=== PATIENT | female | born 1990 | race Caucasian/White ===

== ENCOUNTER 2020-08-21 12:31 | Outpatient (REF) | payer OTHER, SELFPAY ==
[2020-08-21 13:56] LABS: MANUAL DIFF FLAG NO
[2020-08-21 14:04] LABS: Basophils Percent Auto 0.5 % (0-2); Eosinophils Absolute Auto 0.1 X10*3/uL (0.0-0.4); Eosinophils Percent Auto 2.1 % (0-4); Hematocrit 38.2 % (37-47); Hemoglobin 12.1 g/dl (12.0-16.0); Imm Gran Abs Auto 0.01 X10*3/uL (0.00-0.03); Imm Gran Pct Auto 0.2 % (0.0-0.4); Lymphocytes Absolute Auto 2.3 X10*3/uL (1.2-4.9); Lymphocytes Percent Auto 40.8 % (20-40); Mean Corpuscular HGB Conc 31.7 g/dl (31.0-35.0); Mean Corpuscular Hemoglobin 27.1 pg (27.0-33.0); Mean Corpuscular Volume 85.5 fL (80-98); Monocytes Absolute Auto 0.4 X10*3/uL (0.1-1.2); Monocytes Percent Auto 6.5 % (2-11); Neutrophils Absolute Auto 2.8 X10*3/uL (2.0-8.3); Neutrophils Percent Auto 49.9 % (45-73); Platelet Count 314 X10*3/uL (160-400); Red Blood Count 4.47 X10*6/uL (4.20-5.50); Red Cell Distribution Width 12.8 % (11.0-16.0); White Blood Count 5.7 X10*3/uL (4.8-10.8)
[2020-08-21 14:27] LABS: Anion Gap 12 (12-20); Blood Urea Nitrogen 11 mg/dL (9-16); Carbon Dioxide 26 mmol/L (22-29); Chloride 104 mmol/L (96-108); Cholesterol 170 mg/dL; Estimated Glomerular Filt Rate > 60; Glucose Fasting 84 mg/dL (60-99); HDL Cholesterol 49 mg/dL; Iron 35 mcg/dL (30-160); LDL Cholesterol Calculated 107 mg/dl; Percent Iron Saturation 8 % (15-50); Potassium 4.6 mmol/l (3.3-5.1); Sodium 137 mmol/L (135-145); Total Iron Binding Capacity 419 mcg/dL (228-428); Triglycerides 71 mg/dL; Unsaturated Iron Binding 384 ug/dL
[2020-08-21 14:47] LABS: TSH reflex Free T4 1.43 mIU/mL (0.32-4.0)
[2020-08-21 15:20] LABS: Ferritin 16 ng/mL (10-122)
== END 2020-08-21 12:32 | disposition home or self-care (01) ==
LOC: HO.HMGCLDS 12:31
PROVIDERS: PCP Internal Medicine; Visit Provider Internal Medicine
DX: K20.90 Esophagitis, unspecified without bleeding (principal); K58.9 Irritable bowel syndrome, unspecified; I10 Essential (primary) hypertension; Z00.01 Encounter for general adult medical examination with abnormal findings
CPT/HCPCS: 36415; 80048; 80061; 82728; 83540; 84443; 85025

== ENCOUNTER 2022-09-06 09:54 | Outpatient (AMB) | payer OTHER, SELFPAY ==
--- NOTE | 2022-09-06 10:02 | A.OFFPC_ITS ---
Vital Signs 09/06/22 10:07 Height 5 ft 4 in Weight 211 lb BMI 36.2 BP 112/80 Blood Pressure Location Rt brachial Position Sitting Pulse 88 Pulse Source Pulse Oximeter Pulse Oximetry (%) 98 Oxygen Delivery Method Room Air Intake Visit Reasons: PE Intake Note: Pt is here today for her PE Allergies ibuprofen Adverse Reaction (Mild, Verified 02/10/25 00:50) GI upset naproxen Adverse Reaction (Unknown, Verified 02/10/25 00:50) GI upset Medication List - Last Reconciled 09/06/22 by Imani Foley MD buspirone 10 mg PO TID Tobacco use date assessed: 09/06/22 HPI PE HPI Details 31-year-old lady with obesity and anxiet y disorder, here today for physical exam. She is currently seeing [facility] for continued pain in her left hip, has been diagnosed to have left hip femoral acetabular impingement with suspected labral tear. She has failed multiple conservative treatment efforts including activity modification, multiple rounds of formal physical therapy, intra-articular cortisone injection and anti-inflammatory course with no sustained relief. It was recommended that the next step is going to be a referral to Dr. Desai for consideration of left hip arthroscopy with acetabuloplasty, femoroplasty and labral repair. [facility] Medical History (Updated 02/01/25 @ 11:58 by Imani Foley MD) Intertrigo Upper back pain, chronic Uterine fibroid Dorsalgia of cervicothoracic region Obesity with body mass index (BMI) of 35.0 to 39.9 without comorbidity Anxiety and depression Chronic left hip pain Dysmenorrhea IBS (irritable bowel syndrome) Hiatal hernia Esophagitis determined by endoscopy Toes fractured Lactose intolerance Surgical History History of tonsillectomy Family History Father HTN (hypertension) Mother HTN (hypertension) Diabetes mellitus Cancer of thyroid Mental health disorder Brother No problems noted. Brother No problems noted. Sister No problems noted. Social History Housing: Apartment Alcohol intake: current Patient Tobacco Use Status: Never used Tobacco e-Cigarette/Vaping Use: Never Used Substance Use Type: Marijuana service: Yes Current occupational status: employed Current occupation: hvac technician residential at [employer] Current occupational exposures/hazards: No Cognitive needs: No Hearing needs: No Vision needs: No Questionnaire PHQ-9 Over the last 2 weeks, how often have you been bothered by any of the following problems? 1. Little interest or pleasure in doing things: more than half the days 2. Feeling down, depressed, or hopeless: several days 3. Trouble falling or staying asleep, or sleeping too much: nearly every day 4. Feeling tired or having little energy: nearly every day 5. Poor appetite or overeating: nearly every day 6. Feeling bad about yourself - or that you are a failure or have let yourself or your family down: not at all 7. Trouble concentrating on things, such as reading the newspaper or watching television: several days 8. Moving or speaking so slowly that other people could have noticed. Or the opposite - being so fidgety or restless that you have been moving around a lot more than usual: not at all 9. Thoughts that you would be better off or of hurting yourself in some way: not at all Total score: 13 Depression Screening Interpretation: Positive Depression Screening Follow-up: Existing condition and In treatment Source: Developed by Drs. Wesley Her, Clarisa Rodriguez, Felipe Bustillo and colleagues, with an educational cathy from [employer]. Thrive Questionnaire Date Thrive assessed: 09/06/22 I am a: Patient What is your living situation today?: I have a steady place to live Within the past 12 months, did the food you bought not last and you didn't have the money to get more?: Never true Within the past 12 months, did you worry whether your food would run out before you got money to buy more?: Never true Do you have trouble paying for medicines?: No Do you have trouble getting transportation to medical appointments?: No Do you have trouble paying your heating and electricity bill?: No Do you have trouble taking care of your child, family member or friend?: No Do you have trouble with day-to-day activities such as bathing, preparing meals, shopping, managing finances, etc.?: No Are you currently unemployed and looking for a job?: No Are you interested in more education?: Yes MICHAELA-7 AMB Questionnaire MICHAELA-7 Date MICHAELA - 7 assessed: 09/06/22 Feeling nervous, anxious, or on edge: 2 = More than half the days Not being able to stop or control worryin = More than half the days Worrying too much about different things: 3 = Nearly every day Trouble relaxin = Nearly every day Being so restless that it is hard to sit still: 2 = More than half the days Becoming easily annoyed or irritable: 3 = Nearly every day Feeling afraid as if something awful might happen: 0 = Not at all Total MICHAELA-7 score (0-4 normal; 5-9 mild; 10-14 moderate; 15-21 severe): 15 Source: Developed by Drs. Wesley Her, Clarisa Rodriguez, Felipe Bustillo and colleagues, with an educational cathy from [employer]. Physical exam (Primary Care) Vital Signs: Last Vital Signs Pulse 88 09/06/22 10:07 BP 112/80 09/06/22 10:07 Pulse Ox 98 09/06/22 10:07 Oxygen Delivery Method Room Air 09/06/22 10:07 BMI result Body Mass Index 36.2 Tobacco/Smoking Status: Tobacco use Status Tobacco use date assessed 09/06/22 09/06/22 10:09 Patient Tobacco Use Status Never used Tobacco 09/06/22 10:03 e-Cigarette/Vaping Use Never Used 09/06/22 10:03 PHQ-9: PHQ-9 Score PHQ-9: Total score 13 09/06/22 10:48 Depression Screening Interpretation: Positive Depression Screening Follow-up: Existing condition and In treatment Thrive Assessment: Date of Thrive Assessment Date Thrive assessed 09/06/22 09/06/22 10:15 Office Procedures Flu Questionnaire Does the patient have a severe egg allergy?: No Does the patient have severe life threatening allergies?: No Does the patient have a fever or illness today?: No Has the patient ever had Guillain-Morehouse Syndrome?: No Has the patient ever had any past reaction to a flu shot?: No Immunizations flu vacc [id number] 6mos up(PF) 60 mcg(15 mcgx4)/0.5 mL IM syringe Performing Provider: Imani Foley MD Performing Location: [facility] [place] [facility] Administered by: Barbara Albarran CMA on 09/06/22 10:09 Dose Route Admin Location Dispensed Lot Number Expiration Date NDC Salvage Cutter 0.5 mL IM Right Deltoid 0.5 mL [id number] 09/06/22 85705-153-38 [employer] Total Dispensed Waste 0.5 mL 0 % VIS Given Date VIS Provided VIS Publication Date 09/06/22 Single Vaccine 21 Eligibility Eligibility Date Funding Source Not [facility] Eligible 09/06/22 Private Coding Level of Care Code Admin Sign Off/No Billing Diagnoses Chronic left hip pain M25.552; G89.29 Anxiety and depression F41.9; F32.A Annual visit for general adult medical examination with abnormal findings Z00.01 Obesity with body mass index (BMI) of 35.0 to 39.9 without comorbidity E66.9 Dorsalgia of cervicothoracic region M54.2; M54.6
[2022-09-06 10:07] VITALS: BP 112/80; PULSE 88; O2SAT 98; BMI 36.2
== END 2022-09-06 10:49 | disposition home or self-care (01) ==
LOC: HO.HMGC 09:54
PROVIDERS: PCP Internal Medicine; Visit Provider Internal Medicine
DX: M25.552 Pain in left hip (principal); G89.29 Other chronic pain; F41.9 Anxiety disorder, unspecified; F32.A Depression, unspecified; Z00.01 Encounter for general adult medical examination with abnormal findings; E66.9 Obesity, unspecified; M54.2 Cervicalgia; M54.6 Pain in thoracic spine
CPT/HCPCS: 99499

== ENCOUNTER 2022-09-12 08:10 | Outpatient (REF) | payer OTHER, SELFPAY ==
[2022-09-12 09:18] LABS: Cholesterol 160 mg/dL; Glucose Fasting 96 mg/dL (60-99); HDL Cholesterol 42 mg/dL; LDL Cholesterol Calculated 108 mg/dl; TSH reflex Free T4 1.16 uIU/mL (0.32-4.0); Triglycerides 52 mg/dL; Vitamin D 25-OH Total 22.2 ng/mL (>30)
== END 2022-09-12 08:11 | disposition home or self-care (01) ==
LOC: HO.LAB 08:10
PROVIDERS: PCP Internal Medicine; Visit Provider Internal Medicine
DX: Z00.01 Encounter for general adult medical examination with abnormal findings (principal); F32.A Depression, unspecified; F41.9 Anxiety disorder, unspecified; G89.29 Other chronic pain; M25.552 Pain in left hip; E66.9 Obesity, unspecified
CPT/HCPCS: 36415; 80061; 82306; 82947; 84443

== ENCOUNTER 2022-11-25 13:55 | Outpatient (REF) | payer OTHER, SELFPAY ==
--- NOTE | ~2022-11-25 | XR_ITS ---
EXAMINATION: XR LUMBOSACRAL SPINE CLINICAL INFORMATION: 32-year-old with low back pain COMPARISON: CT scan from 08/19/2019 TECHNIQUE: Three views of the lumbosacral spine. FINDINGS: The vertebral bodies and posterior elements are normal. The disc spaces are preserved and the vertebral alignment is normal. The paraspinal soft tissues are normal. XR/XR lumbar spine 2-3V IMPRESSION: Unremarkable examination.
== END 2022-11-25 13:56 | disposition home or self-care (01) ==
LOC: HO.HMGCX 13:55
PROVIDERS: PCP Internal Medicine; Visit Provider Physician Assistant
DX: M54.50 Low back pain, unspecified (principal)
CPT/HCPCS: 72100

== ENCOUNTER 2023-09-12 11:01 | Outpatient (AMB) | payer OTHER, SELFPAY ==
[2023-09-12 11:45] VITALS: BP 132/86; PULSE 86; O2SAT 99; BMI 40.4
--- NOTE | 2023-09-12 11:45 | MHC.PC.OV ---
Vital Signs 09/12/23 11:45 Height 5 ft 4 in Weight 235 lb 6 oz BMI 40.4 BP 132/86 Blood Pressure Location Rt brachial Position Sitting Pulse 86 Pulse Source Pulse Oximeter Pulse Oximetry (%) 99 Oxygen Delivery Method Room Air Intake Visit Reasons: Annual PE Intake Note: Pt is here for her Annual PE Pt's last pap was at [facility] 07/21 Is last menstrual period known: Yes Last menstrual period: 08/26/23 Allergies ibuprofen Adverse Reaction (Mild, Verified 09/12/23 12:11) GI upset naproxen Adverse Reaction (Unknown, Verified 09/12/23 12:11) GI upset Medication List - Last Reconciled 09/12/23 by Imani Foley MD buspirone 10 mg PO TID Tobacco use date assessed: 09/12/23 Dental Screening Dental Screen Date: 09/12/23 Did you have a dental visit in the last 12 months?: Yes Did you have a dental problem in the last 6 months where you did not have access to dental care?: No Was dental information given to patient?: Patient has dentist HPI Annual PE HPI Details 32-year-old lady here today for physical exam. She goes to [facility] for routine Pap, LAST DONE APRIL 2023 which showed ASCUS and positive BV. She is also being seen for uterine fibroids, and is to be scheduled for a myomectomy. Has anxiety depression currently on buspirone 10 mg 1 tablet 3 times a day which she states has not seem to be helping anymore. She has been diagnosed to have anxiety since she was 15 years old, has only been seen for therapy but no Psychiatry evaluation. Patient thinks that she might also have ADD as she has had problems keeping her concentration and focus at work. Would like a referral for formal evaluation to evaluate for ADD. Complains of itching and occasional stinging pain inside left ear canal. This has been present now for the last several weeks after she was treated for an acute sinusitis . [facility] Medical History Uterine fibroid Dorsalgia of cervicothoracic region Obesity with body mass index (BMI) of 35.0 to 39.9 without comorbidity Anxiety and depression Chronic left hip pain Dysmenorrhea IBS (irritable bowel syndrome) Hiatal hernia Esophagitis determined by endoscopy Toes fractured Lactose intolerance Surgical History History of tonsillectomy Family History Father HTN (hypertension) Mother HTN (hypertension) Diabetes mellitus Cancer of thyroid Brother No problems noted. Brother No problems noted. Sister No problems noted. Social History Housing: Apartment Alcohol intake: current Patient Tobacco Use Status: Never used Tobacco e-Cigarette/Vaping Use: Never Used Substance Use Type: Marijuana service: Yes Current occupational status: employed Current occupation: residential team leader at [employer] Current occupational exposures/hazards: No Cognitive needs: No Hearing needs: No Vision needs: No Female Reproductive History Menstrual Duration of menses: 6-7 days Date of last menstrual period: 08/26/23 Date of last pap smear: 05/14/23 History of abnormal pap smear: Yes Other: [facility], had a Pap smear done June 2023, currently being followed for uterine fibroid, to be scheduled for a myomectomy Questionnaire PHQ-9 Over the last 2 weeks, how often have you been bothered by any of the following problems? 1. Little interest or pleasure in doing things: more than half the days 2. Feeling down, depressed, or hopeless: more than half the days 3. Trouble falling or staying asleep, or sleeping too much: nearly every day 4. Feeling tired or having little energy: more than half the days 5. Poor appetite or overeating: several days 6. Feeling bad about yourself - or that you are a failure or have let yourself or your family down: not at all 7. Trouble concentrating on things, such as reading the newspaper or watching television: nearly every day 8. Moving or speaking so slowly that other people could have noticed. Or the opposite - being so fidgety or restless that you have been moving around a lot more than usual: not at all 9. Thoughts that you would be better off or of hurting yourself in some way: not at all Total score: 13 Depression Screening Interpretation: Positive Depression Screening Follow-up: Existing condition, In treatment, New Medication prescribed, Community Mental Health Worker F/U (Referred [facility] for assistance in getting in to be seen by therapist and psychiatry) and Follow-up Visit Requested Depression Screening Done: Yes 10196 - PHQ-9 Billing: Yes Source: Developed by Drs. Wesley Her, Clarisa Rodriguez, Felipe Bustillo and colleagues, with an educational cathy from [facility] [employer]. Thrive Questionnaire Date Thrive assessed: 09/12/23 Within the past 12 months, did the food you bought not last and you didn't have the money to get more?: Never true Within the past 12 months, did you worry whether your food would run out before you got money to buy more?: Never true Do you have trouble paying for medicines?: No Do you have trouble getting transportation to medical appointments?: No Do you have trouble paying your heating and electricity bill?: No Do you have trouble taking care of your child, family member or friend?: No Do you have trouble with day-to-day activities such as bathing, preparing meals, shopping, managing finances, etc.?: No Are you currently unemployed and looking for a job?: No Are you interested in more education?: No AUDIT C Alcohol Use Questionnaire (AUDIT-C) 1. How often do you have a drink containing alcohol?: 2-3 times a week 2. How many drinks containing alcohol do you have on a typical day when you are drinking?: 3 or 4 3. How often do you have six or more drinks on one occasion?: Never Total Score: 4 MICHAELA-7 AMB Questionnaire MICHAELA-7 Date MICHAELA - 7 assessed: 09/06/22 Feeling nervous, anxious, or on edge: 2 = More than half the days Not being able to stop or control worryin = Nearly every day Worrying too much about different things: 3 = Nearly every day Trouble relaxin = More than half the days Being so restless that it is hard to sit still: 2 = More than half the days Becoming easily annoyed or irritable: 2 = More than half the days Feeling afraid as if something awful might happen: 1 = Several days Total MICHAELA-7 score (0-4 normal; 5-9 mild; 10-14 moderate; 15-21 severe): 15 Source: Developed by Drs. Wesley Her, Clarisa Rodriguez, Felipe Bustillo and colleagues, with an educational cathy from [facility]. MICHAELA-7 Assessment Billing MICHAELA-7 Assessment Tool: MCIHAELA-7 Assessment 47316 Review of Systems Const Denies body aches, Denies fatigue, Denies fever(s), Denies headache(s) and Denies weakness Eyes Denies change in vision, Denies eye discharge and Denies itchy eyes ENT Reports as per HPI, Denies dizziness, Denies ear discharge, Denies headache(s), Denies nasal congestion, Denies nasal discharge and Denies sore throat Card Denies chest pain, Denies lightheadedness, Denies palpitations and Denies dyspnea Resp Denies chest congestion, Denies cough, Denies dyspnea and Denies wheezing GI Denies abdominal pain, Denies change in bowel habits and Denies heartburn Denies hematuria, Denies urinary frequency, Denies dysuria and Denies urinary urgency Musc Reports no additional complaints Skin/Breast Denies breast pain, Denies breast mass, Denies lesions and Denies rash Neuro Denies dizziness, Denies headache(s) and Denies weakness Psych Reports as per HPI Endo Denies fatigue, Denies polydipsia, Denies polyuria and Denies palpitations Paresh/Lymph Denies easy bruising Aller/Immun Denies itchy eyes, Denies seasonal rhinorrhea and Denies wheezing Physical exam (Primary Care) Vital Signs: Last Vital Signs Pulse 86 09/12/23 11:45 BP 132/86 09/12/23 11:45 Pulse Ox 99 09/12/23 11:45 Oxygen Delivery Method Room Air 09/12/23 11:45 BMI result Body Mass Index 40.4 Tobacco/Smoking Status: Tobacco use Status Tobacco use date assessed 09/12/23 09/12/23 11:52 Patient Tobacco Use Status Never used Tobacco 09/12/23 11:52 e-Cigarette/Vaping Use Never Used 09/12/23 11:52 PHQ-9: PHQ-9 Score PHQ-9: Total score 13 09/12/23 12:35 Depression Screening Interpretation: Positive Depression Screening Follow-up: Existing condition, In treatment, New Medication prescribed, Community Mental Health Worker F/U (Referred [facility] for assistance in getting in to be seen by therapist and psychiatry) and Follow-up Visit Requested Thrive Assessment: Date of Thrive Assessment Date Thrive assessed 09/12/23 09/12/23 12:35 Const General: no acute distress and alert Orientation/consciousness: patient oriented x3 [facility] Head: Yes normocephalic and Yes atraumatic Ears: external ears normal General nose exam: Normal external nose present and No nasal discharge present Face and sinus: Yes face symmetric Mouth: Normal oral and palatal mucosa present, oropharynx normal and moist mucous membranes Eyes General: appearance normal, both eyes and all related structures Neck Neck: Yes full ROM, Yes no lymphadenopathy and Yes supple Thyroid: Thyroid normal Resp Effort & Inspection: normal respiratory effort and able to speak in complete sentences Auscultation: clear to auscultation bilaterally Cardio Rate: regular rate Rhythm: regular rhythm Heart sounds: S1 normal heart sound present and S2 normal heart sound present GI Palpation (GI): Soft to palpation, nontender, no guarding and no masses Auscultation: normal bowel sounds General: Yes no CVA tenderness Back/Spine/Pelvis Back: no CVA tenderness and No back tenderness Skin General skin exam: no rashes or lesions noted Neuro General: patient oriented x3, gait normal, moves all extremities, Normal light touch and pain sensation, no focal motor deficits and CN's II-XI intact bilaterally Cognition (Neuro): normal cognition Gait exam (Neuro): Normal gait present Motor exam (neuro): 5/5 motor strength present throughout Extrem General: Yes normal to inspection, Yes full ROM, Yes no joint enlargement, Yes no pedal edema and Yes normal gait Psych Appearance: grossly normal and well kempt Mental Status: mental status grossly normal Speech and movement: Normal speech and movement present Affect: normal affect Attitude: cooperative Thought process: Normal thought process present Thought content: Normal thought content present Insight: Good insight present (Psych) Judgement: Good judgement present (Psych) Assessment and Plan Assessment & Plan (1) Annual visit for general adult medical examination with abnormal findings: Code(s): Z00.01 - Encounter for general adult medical examination with abnormal findings Plan: Fasting lab ordered. Up-to-date with her cervical cancer screening and Pap smear, reminded to get dental prophylaxis every 6 months and get eye exam at least every 2 years. She is up-to-date with her flu vaccine, declines getting COVID booster sending more, up-to-date with her Tdap (2) Anxiety and depression: Code(s): F41.9 - Anxiety disorder, unspecified; F32.A - Depression, unspecified Plan: Continue with buspirone 10 mg 1 tablet 3 times a day, added escitalopram 5 mg 1 daily, referred to Anastasiya almanza [facility] for assistance and referring her for therapy and for evaluation for possible ADD (3) Obesity with body mass index (BMI) of 35.0 to 39.9 without comorbidity: Code(s): E66.9 - Obesity, unspecified Plan: Discussed need to increase activity and wt reduction. Recommended focusing on improving your health instead of dieting. : Eat Mediterranean diet, limit foods high in fat, sugar, and calories, eat slowly, pay attention to portion sizes, plan your meals ahead of time, start regular physical activity 150 minutes of moderate intensity exercise or 90 minutes/week of vigorous exercise and increase water intake. (4) Otalgia of left ear: Code(s): H92.02 - Otalgia, left ear Plan: Prescription sent for nodbsiql-zqpaipqs-DB-thonzonium new drops, to use as directed (5) Uterine fibroid: Code(s): D25.9 - Leiomyoma of uterus, unspecified Plan: Currently followed by OBGYN at [facility], awaiting schedule for myomectomy Orders: Orders Lipid Panel Today D25.9 - Leiomyoma of uterus, unspecified, E66.9 - Obesity, unspecified, F32.A - Depression, unspecified, F41.9 - Anxiety disorder, unspecified, H92.02 - Otalgia, left ear, J30.9 - Allergic rhinitis, unspecified, K20.90 - Esophagitis, unspecified without bleeding, Z00.01 - Encounter for general adult medical examination with abnormal findings Aspartate Amino Transferase Today D25.9 - Leiomyoma of uterus, unspecified, E66.9 - Obesity, unspecified, F32.A - Depression, unspecified, F41.9 - Anxiety disorder, unspecified, H92.02 - Otalgia, left ear, J30.9 - Allergic rhinitis, unspecified, K20.90 - Esophagitis, unspecified without bleeding, Z00.01 - Encounter for general adult medical examination with abnormal findings Alanine Aminotransferase Today D25.9 - Leiomyoma of uterus, unspecified, E66.9 - Obesity, unspecified, F32.A - Depression, unspecified, F41.9 - Anxiety disorder, unspecified, H92.02 - Otalgia, left ear, J30.9 - Allergic rhinitis, unspecified, K20.90 - Esophagitis, unspecified without bleeding, Z00.01 - Encounter for general adult medical examination with abnormal findings Basic Metabolic Panel Fasting Today D25.9 - Leiomyoma of uterus, unspecified, E66.9 - Obesity, unspecified, F32.A - Depression, unspecified, F41.9 - Anxiety disorder, unspecified, H92.02 - Otalgia, left ear, J30.9 - Allergic rhinitis, unspecified, K20.90 - Esophagitis, unspecified without bleeding, Z00.01 - Encounter for general adult medical examination with abnormal findings Complete Blood Count Auto Diff Today D25.9 - Leiomyoma of uterus, unspecified, E66.9 - Obesity, unspecified, F32.A - Depression, unspecified, F41.9 - Anxiety disorder, unspecified, H92.02 - Otalgia, left ear, J30.9 - Allergic rhinitis, unspecified, K20.90 - Esophagitis, unspecified without bleeding, Z00.01 - Encounter for general adult medical examination with abnormal findings TSH reflex Free T4 Today D25.9 - Leiomyoma of uterus, unspecified, E66.9 - Obesity, unspecified, F32.A - Depression, unspecified, F41.9 - Anxiety disorder, unspecified, H92.02 - Otalgia, left ear, J30.9 - Allergic rhinitis, unspecified, K20.90 - Esophagitis, unspecified without bleeding, Z00.01 - Encounter for general adult medical examination with abnormal findings Vitamin D 25-OH Total Today D25.9 - Leiomyoma of uterus, unspecified, E66.9 - Obesity, unspecified, F32.A - Depression, unspecified, F41.9 - Anxiety disorder, unspecified, H92.02 - Otalgia, left ear, J30.9 - Allergic rhinitis, unspecified, K20.90 - Esophagitis, unspecified without bleeding, Z00.01 - Encounter for general adult medical examination with abnormal findings Medications: New escitalopram oxalate 5 mg PO DAILY 30 tabs 1RF F32.A - Depression, unspecified, F41.9 - Anxiety disorder, unspecified evnfkdts-sfbiuz-VM-thonzonium 3.3-3-10-0.5 mg/mL apply to (cotton) wick; replace wick every 24 hours 1 appl otic (ear) left Q4H 5 days 10 mL 0RF Coding Level of Care Code Est Pt Prev Care [id number]([id number]) Diagnoses Annual visit for general adult medical examination with abnormal findings Z00.01 Anxiety and depression F41.9; F32.A Obesity with body mass index (BMI) of 35.0 to 39.9 without comorbidity E66.9 Otalgia of left ear H92.02 Uterine fibroid D25.9 Additional Codes MICHAELA-7 Assessment Billing - MICHAELA-7 Assessment Tool: MICHAELA-7 Assessment [id number] ([id number])
== END 2023-09-12 14:14 | disposition home or self-care (01) ==
PROVIDERS: Visit Provider Internal Medicine
DX: Z00.01 Encounter for general adult medical examination with abnormal findings (principal); F41.9 Anxiety disorder, unspecified; H92.02 Otalgia, left ear; F32.A Depression, unspecified; E66.9 Obesity, unspecified; D25.9 Leiomyoma of uterus, unspecified
CPT/HCPCS: 96127; 99213; 99395

== ENCOUNTER 2023-10-16 09:35 | Outpatient (REF) | payer OTHER, SELFPAY ==
[2023-10-16 11:47] LABS: MANUAL DIFF FLAG NO
[2023-10-16 12:10] LABS: Basophils Percent Auto 0.3 % (0-2); Eosinophils Absolute Auto 0.2 X10*3/uL (0.0-0.4); Eosinophils Percent Auto 2.3 % (0-4); Hematocrit 37.8 % (37.0-47.0); Hemoglobin 12.3 g/dl (12.0-16.0); Imm Gran Abs Auto 0.05 X10*3/uL (0.00-0.03); Imm Gran Pct Auto 0.6 % (0.0-0.4); Lymphocytes Percent Auto 25.9 % (20-40); Mean Corpuscular HGB Conc 32.5 g/dl (31.0-35.0); Mean Corpuscular Hemoglobin 26.7 pg (27.0-33.0); Mean Corpuscular Volume 82.2 fL (80.0-98.0); Mean Platelet Volume 10.1 fL (9.4-12.3); Monocytes Absolute Auto 0.4 X10*3/uL (0.1-1.2); Monocytes Percent Auto 5.7 % (2-11); Neutrophils Percent Auto 65.2 % (45-73); Platelet Count 348 X10*3/uL (160-400); Red Cell Distribution Width 12.8 % (11.0-16.0); White Blood Count 7.7 X10*3/uL (4.8-10.8)
[2023-10-16 13:26] LABS: Alanine Aminotransferase 32 U/L (0-31); Anion Gap 13 (12-20); Aspartate Amino Transferase 23 U/L (5-31); Blood Urea Nitrogen 9 mg/dL (9-16); Calcium 9.5 mg/dL (8.4-10.2); Carbon Dioxide 23 mmol/L (22-29); Chloride 109 mmol/L (96-108); Cholesterol 162 mg/dL (<200); Estimated Glomerular Filt Rate > 60; Glucose Fasting 81 mg/dL (60-99); HDL Cholesterol 45 mg/dL (>40); LDL Cholesterol Calculated 103 mg/dL (<100); Sodium 141 mmol/L (135-145); Triglycerides 71 mg/dL (<150)
[2023-10-16 13:44] LABS: TSH reflex Free T4 0.74 uIU/mL (0.32-4.0); Vitamin D 25-OH Total 20.4 ng/mL (>30)
== END 2023-10-16 09:36 | disposition home or self-care (01) ==
LOC: HO.HMGCLDS 09:35
PROVIDERS: PCP Internal Medicine; Visit Provider Internal Medicine
DX: Z00.01 Encounter for general adult medical examination with abnormal findings (principal); F41.9 Anxiety disorder, unspecified; F32.A Depression, unspecified; E66.9 Obesity, unspecified; K20.90 Esophagitis, unspecified without bleeding; D25.9 Leiomyoma of uterus, unspecified; J30.9 Allergic rhinitis, unspecified; H92.02 Otalgia, left ear
CPT/HCPCS: 36415; 80048; 80061; 82306; 84443; 84450; 84460; 85025

== ENCOUNTER 2025-01-31 09:06 | Outpatient (REF) | payer OTHER, SELFPAY ==
[2025-01-31 10:41] LABS: Alanine Aminotransferase 17 U/L (0-31); Anion Gap 12 (12-20); Aspartate Amino Transferase 19 U/L (5-31); Blood Urea Nitrogen 11 mg/dL (9-16); Calcium 9.1 mg/dL (8.4-10.2); Carbon Dioxide 22 mmol/L (22-29); Chloride 109 mmol/L (96-108); Cholesterol 163 mg/dL (<200); Estimated Glomerular Filt Rate > 60; Glucose Fasting 99 mg/dL (60-99); HDL Cholesterol 43 mg/dL (>40); LDL Cholesterol Calculated 108 mg/dL (<100); Sodium 139 mmol/L (135-145); Triglycerides 63 mg/dL (<150)
== END 2025-01-31 09:07 | disposition home or self-care (01) ==
LOC: HO.HMGCLDS 09:06
PROVIDERS: PCP Internal Medicine; Visit Provider Internal Medicine
DX: Z13.220 Encounter for screening for lipoid disorders (principal); Z13.1 Encounter for screening for diabetes mellitus; E66.9 Obesity, unspecified
CPT/HCPCS: 36415; 80048; 80061; 84450; 84460

== ENCOUNTER 2025-02-01 10:07 | Outpatient (AMB) | payer OTHER, SELFPAY ==
--- NOTE | 2025-02-01 11:21 | A.OFFPC_ITS ---
Vital Signs 02/01/25 11:22 Height 5 ft 5 in Weight 212 lb BMI 35.3 BP 140/90 H Blood Pressure Location Lt brachial Position Sitting Respiration 16 Pulse 94 Pulse Source Pulse Oximeter Temp 97.9 F Temp Source Oral Pulse Oximetry (%) 99 Oxygen Delivery Method Room Air Intake Visit Reasons: PE Intake Note: Pt is here today for her PE Allergies ibuprofen Adverse Reaction (Mild, Verified 02/10/25 00:50) GI upset naproxen Adverse Reaction (Unknown, Verified 02/10/25 00:50) GI upset Medication List - Last Reconciled 02/10/25 by Imani Foley MD chlorhexidine gluconate 4% (Hibiclens) 1 appl topical 3XW 2 doses phentermine 15 mg PO DAILY Tobacco use date assessed: 02/01/25 Dental Screening Dental Screen Date: 02/01/25 Did you have a dental visit in the last 12 months?: Yes Did you have a dental problem in the last 6 months where you did not have access to dental care?: No Was dental information given to patient?: Patient has dentist HPI PE HPI Details 34-year-old lady with history of obesity , recurrent left hip pain, dysmenorrhea, IBS, esophagitis and hiatal hernia as seen on upper endoscopy here today for physical exam. She is up-to-date with her cervical cancer screening, goes to [facility]. Complaining of current pain and stiffness in her upper back, which has been present now for several months and is getting worse. Has a recurrent rash under breasts and groin area, which is very itchy. She has been trying , unsuccessfully, to lose weight, with changes in her diet, but admits to not getting much exercise. She is interested in exploring other weight loss treatment options [facility] Medical History (Updated 02/01/25 @ 11:58 by Imani Foley MD) Intertrigo Upper back pain, chronic Uterine fibroid Dorsalgia of cervicothoracic region Obesity with body mass index (BMI) of 35.0 to 39.9 without comorbidity Anxiety and depression Chronic left hip pain Dysmenorrhea IBS (irritable bowel syndrome) Hiatal hernia Esophagitis determined by endoscopy Toes fractured Lactose intolerance Surgical History History of tonsillectomy Family History Father HTN (hypertension) Mother HTN (hypertension) Diabetes mellitus Cancer of thyroid Mental health disorder Brother No problems noted. Brother No problems noted. Sister No problems noted. Social History Housing: Apartment Alcohol intake: current Patient Tobacco Use Status: Never used Tobacco e-Cigarette/Vaping Use: Never Used Substance Use Type: Marijuana service: Yes Current occupational status: employed Current occupation: residential carpet installer at [employer] Current occupational exposures/hazards: No Cognitive needs: No Hearing needs: No Vision needs: No Questionnaire PHQ-9 Over the last 2 weeks, how often have you been bothered by any of the following problems? 1. Little interest or pleasure in doing things: not at all 2. Feeling down, depressed, or hopeless: not at all 3. Trouble falling or staying asleep, or sleeping too much: several days 4. Feeling tired or having little energy: several days 5. Poor appetite or overeating: several days 6. Feeling bad about yourself - or that you are a failure or have let yourself or your family down: not at all 7. Trouble concentrating on things, such as reading the newspaper or watching television: not at all 8. Moving or speaking so slowly that other people could have noticed. Or the opposite - being so fidgety or restless that you have been moving around a lot more than usual: not at all 9. Thoughts that you would be better off or of hurting yourself in some way: not at all Total score: 3 Depression Screening Interpretation: Negative Depression Screening Done: Yes 46973 - PHQ-9 Billing: Yes Source: Developed by Drs. Wesley Her, Clarisa Rodriguez, Felipe Bustillo and colleagues, with an educational cathy from [employer]. Thrive Questionnaire Date Thrive assessed: 02/01/25 I am a: Patient What is your living situation today?: I have a place to live, but I am worried about losing it in the future Within the past 12 months, did the food you bought not last and you didn't have the money to get more?: Never true Within the past 12 months, did you worry whether your food would run out before you got money to buy more?: Never true Do you have trouble paying for medicines?: No Do you have trouble getting transportation to medical appointments?: No Do you have trouble paying your heating and electricity bill?: No Do you have trouble taking care of your child, family member or friend?: No Do you have trouble with day-to-day activities such as bathing, preparing meals, shopping, managing finances, etc.?: No Are you currently unemployed and looking for a job?: No Are you interested in more education?: No Please select the resources that you would like help with: Housing/Penitentiary Currently or been in a relationship where the following occur: No concerns reported THRIVE Score: 1 AUDIT C Alcohol Use Questionnaire (AUDIT-C) 1. How often do you have a drink containing alcohol?: Monthly or less 2. How many drinks containing alcohol do you have on a typical day when you are drinking?: 1 or 2 3. How often do you have six or more drinks on one occasion?: Less than monthly Total Score: 2 MICHAELA-7 AMB Questionnaire MICHAELA-7 Date MICHAELA - 7 assessed: 02/01/25 Feeling nervous, anxious, or on edge: 1 = Several days Not being able to stop or control worryin = Several days Worrying too much about different things: 1 = Several days Trouble relaxin = Several days Being so restless that it is hard to sit still: 1 = Several days Becoming easily annoyed or irritable: 1 = Several days Feeling afraid as if something awful might happen: 1 = Several days Total MICHAELA-7 score (0-4 normal; 5-9 mild; 10-14 moderate; 15-21 severe): 7 Source: Developed by Drs. Wesley Her, Clarisa Rodriguez, Felipe Bustillo and colleagues, with an educational cathy from [employer]. MICHAELA-7 Assessment Billing MICHAELA-7 Assessment Tool: MICHAELA-7 Assessment 03237 Review of Systems Const Denies fever(s), Denies headache(s) and Denies weakness Eyes Denies change in vision, Denies eye discharge and Denies itchy eyes ENT Reports as per HPI, Denies dizziness, Denies headache(s) and Denies nasal congestion Card Denies chest pain, Denies lightheadedness, Denies palpitations and Denies dyspnea Resp Denies chest congestion, Denies cough, Denies dyspnea and Denies wheezing GI Denies abdominal pain, Denies change in bowel habits and Denies heartburn Denies hematuria, Denies urinary frequency, Denies dysuria and Denies urinary ur gency Musc Reports as per HPI Skin/Breast Denies breast pain, Denies breast mass and Denies lesions Neuro Denies dizziness, Denies headache(s) and Denies weakness Psych Reports as per HPI Endo Denies polydipsia, Denies polyuria and Denies palpitations Paresh/Lymph Denies easy bruising Aller/Immun Denies itchy eyes, Denies seasonal rhinorrhea and Denies wheezing Physical exam (Primary Care) Vital Signs: Last Vital Signs Temp 97.9 F 02/01/25 11:22 Pulse 94 02/01/25 11:22 Resp 16 02/01/25 11:22 BP 140/90 H 02/01/25 11:22 Pulse Ox 99 02/01/25 11:22 Oxygen Delivery Method Room Air 02/01/25 11:22 BMI result Body Mass Index 35.3 Tobacco/Smoking Status: Tobacco use Status Tobacco use date assessed 02/01/25 02/01/25 11:27 Patient Tobacco Use Status Never used Tobacco 02/01/25 11:27 e-Cigarette/Vaping Use Never Used 02/01/25 11:27 PHQ-9: PHQ-9 Score PHQ-9: Total score 3 02/10/25 01:18 Depression Screening Interpretation: Negative Thrive Assessment: Date of Thrive Assessment Date Thrive assessed 02/01/25 02/01/25 11:27 Currently or been in a relationship where the following occur: No concerns reported Advance Care Planning discussion: Completed/Scanned Date of discussion: 02/01/25 Who was present: Patient Forms completed: Health Care Proxy Time spent: 16-45 minutes Actual minutes spent: 30 Const General: no acute distress and alert Orientation/consciousness: patient oriented x3 HENMT Head: Yes normocephalic and Yes atraumatic Ears: external ears normal General nose exam: Normal external nose present and No nasal discharge present Face and sinus: Yes face symmetric Mouth: Normal oral and palatal mucosa present, oropharynx normal and moist mucous membranes Eyes General: appearance normal, both eyes and all related structures Neck Neck: Yes full ROM, Yes no lymphadenopathy and Yes supple Thyroid: Thyroid normal Chest Other: Large breasts, symmetric Breast/axilla palpation: normal palpation of the breasts Resp Effort & Inspection: normal respiratory effort and able to speak in complete sentences Auscultation: clear to auscultation bilaterally Cardio Rate: regular rate Rhythm: regular rhythm Heart sounds: S1 normal heart sound present and S2 normal heart sound present GI Palpation (GI): Soft to palpation, nontender, no guarding and no masses Auscultation: normal bowel sounds General: Yes no CVA tenderness Back/Spine/Pelvis Back: no CVA tenderness and back tenderness (Over upper back and interscapular area) Skin Other: Erythematous patch underneath both breasts Neuro General: patient oriented x3, gait normal, moves all extremities, Normal light touch and pain sensation, no focal motor deficits and CN's II-XI intact bilaterally Cognition (Neuro): normal cognition Gait exam (Neuro): Normal gait present Motor exam (neuro): 5/5 motor strength present throughout Extrem General: Yes normal to inspection, Yes full ROM, Yes no joint enlargement, Yes no pedal edema and Yes normal gait Psych Appearance: grossly normal and well kempt Mental Status: mental status grossly normal Speech and movement: Normal speech and movement present Affect: normal affect Attitude: cooperative Thought process: Normal thought process present Thought content: Normal thought content present Results Reviewed Results Reviewed: Name: Rhona Bautista Age/Sex: 34/F : 1990 Unit#: [id number] Attend Dr: Imani Foley MD Re01/31/25 Status: DEP REF Location: [facility] Disch: SPEC : [id number] JACY: 01/31/25 STATUS: COMP REQ : [id number] RECD: 01/31/[address]: Imani Foley MD COMP: 01/31/25 ENTERED: 01/31/[address]: ORDERED: Met Prof Fast, AST, ALT, Lipid Panel Test Result Flag Reference Sodium 139 135-145 mmol/L Potassium 4.0 3.3-5.1 mmol/L CL 109 H 96-108 mmol/L CO2 22 22-29 mmol/L Gap 12 12-20 BUN 11 9-16 mg/dL Creat 0.69 0.5-1.4 mg/dL eGFR > 60 Chronic Kidney Disease: Estimated GFR < 60 mL/min/1.73m2 Severe Kidney Disease: Estimated GFR < 15 mL/min/1.73m2 FBS 99 60-99 mg/dL CA 9.1 8.4-10.2 mg/dL AST (GOT) 19 5-31 U/L ALT (GPT) 17 0-31 U/L Triglyceride 63 <150 mg/dL Desirable Triglyceride: less than 150 mg/dL Borderline High Triglyceride 150-199 mg/dL High Triglyceride: 200-499 mg/dL Very High Triglyceride: greater than or equal to 5OO mg/dL Cholesterol 163 <200 mg/dL Desirable Cholesterol: less than 200 mg/dL Borderline High Cholesterol: 200-239 mg/dL High Cholesterol: greater than 239 mg/dL LDL Calculated 108 H <100 mg/dL Desirable LDL: less than 100 mg/dL Near Optimal/Above Optimal LDL: 110-129 mg/dL Borderline High LDL: 130-159 mg/dL High LDL: 160-189 mg/dL Very High LDL: greater than or equal to 190 mg/dL HDL 43 >40 mg/dL Desirable HDL: greater than 40 mg/dL Note: This HDL assay may give artificially low results in patients with liver disease. Coding Level of Care Code Est Pt Prev Care 18-39y(72047) Diagnoses Annual visit for general adult medical examination with abnormal findings Z00. Upper back pain, chronic M54.9; G89.29 Intertrigo L30.4 Obesity with body mass index (BMI) of 35.0 to 39.9 without comorbidity E66.9 Anxiety and depression F41.9; F32.A Advanced directives, counseling/discussion Z71.89 Additional Codes MICHAELA-7 Assessment Billing - MICHAELA-7 Assessment Tool: MICHAELA-7 Assessment 04052 ([id number]) PHQ-9 - 77846 - PHQ-9 Billing: Yes ([id number]) Vital Signs *Quality* - Advance Care Planning discussion: Completed/Scanned ([id number]) Vital Signs *Quality* - Time spent: 16-45 minutes ([id number]) Assessment & Plan Assessment & Plan (1) Annual visit for general adult medical examination with abnormal findings: Code(s): Z00.01 - Encounter for general adult medical examination with abnormal findings Plan: Latest fasting labs showed fasting glucose and lipids are within normal limits. Continued regular dental visit every 6 months and regular eye exams, at least every 2 years. Take adequate calcium in diet and vitamin-D 3 at 2000 IU per cap once a day, in addition to weight-bearing exercises to help maintain good muscle tone and weight control. Instructed to do self-breast exam, and recommended to get yearly mammogram, starting at age 40. She goes to [facility] for her routine Pap and pelvic exam. Has had vaccines in the past but does not want to get the booster, declined flu vaccine, due for her tetanus booster this year (2) Upper back pain, chronic: Code(s): M54.9 - Dorsalgia, unspecified; G89.29 - Other chronic pain Category: Medical Plan: Referred to breast surgeon to see if qualified to undergo breast reduction surgery to relieve upper back pain (3) Intertrigo: Code(s): L30.4 - Erythema intertrigo Category: Medical Plan: Advised to keep areas under both breasts clean and dry at all times. (4) Obesity with body mass index (BMI) of 35.0 to 39.9 without comorbidity: Code(s): E66.9 - Obesity, unspecified Category: Medical Plan: Patient has tried conservative measures, will try on phentermine started on 15 mg per capsule to take once a day 2 hours after breakfast. This should be combined with adherence to healthy eating habits and lifestyle changes . Follow-up in 2 months (5) Anxiety and depression: Code(s): F41.9 - Anxiety disorder, unspecified; F32.A - Depression, unspecified Category: Medical Plan: Patient declines referral for counseling and does not want to start medication at present time, want to try behavioral modifications, (6) Advanced directives, counseling/discussion: Code(s): Z71.89 - Other specified counseling Plan: Initiated the conversation about Advanced Directives. Advanced Directives help patients prepare for current and future decisions about their medical treatment and place of care. Discussed with patient that it is a process where a patients current condition and prognosis are reviewed, their wishes for information regarding their illness are elicited, and likely medical dilemmas are presented and options discussed. Healthcare proxy form completed. The form can be amended as needed, reviewed yearly and make changes as needed Orders: Referrals Breast Surgery Referral M54.9 - Dorsalgia, unspecified, G89.29 - Other chronic pain, L30.4 - Erythema intertrigo Medications: New phentermine must administer 2 hours after breakfast 15 mg PO DAILY 30 caps 1RF chlorhexidine gluconate 4% (Hibiclens) 1 appl topical 3XW 473 mL 1RF 2 doses L30.4 - Erythema intertrigo
[2025-02-01 11:22] VITALS: BP 140/90; PULSE 94; RESP 16; TEMP 36.6; O2SAT 99; BMI 35.3
== END 2025-02-01 12:08 | disposition home or self-care (01) ==
LOC: HO.HMCC 10:08
PROVIDERS: PCP Internal Medicine; Visit Provider Internal Medicine
DX: Z00.01 Encounter for general adult medical examination with abnormal findings (principal); M54.9 Dorsalgia, unspecified; G89.29 Other chronic pain; L30.4 Erythema intertrigo; E66.9 Obesity, unspecified; F41.9 Anxiety disorder, unspecified; F32.A Depression, unspecified; Z71.89 Other specified counseling; Z00.00 Encounter for general adult medical examination without abnormal findings

== ENCOUNTER → 2025-02-01 10:07 | Outpatient (BNVA) | payer OTHER, SELFPAY | PROVIDERS: PCP Internal Medicine; Visit Provider Internal Medicine | DX: Z00.01 Encounter for general adult medical examination with abnormal findings (principal); M54.9 Dorsalgia, unspecified; G89.29 Other chronic pain; L30.4 Erythema intertrigo; E66.9 Obesity, unspecified; Z68.35 Body mass index [BMI] 35.0-35.9, adult; F41.9 Anxiety disorder, unspecified; F32.A Depression, unspecified; Z71.89 Other specified counseling | CPT/HCPCS: 96127; 99395; 99497 ==